=== PATIENT | male | born 1960 | race Caucasian/White ===

== ENCOUNTER → 2016-07-11 | Day surgery (SDC) | payer OTHER ==
[~2016-07-11] MED LIST: ACID REDUCER 1150 MG PO; ALPRAZOLAM0.5 MG PO; ASPIR 8181 MG PO; BETADINE OINT 101 GM TOP; CLINDAMYCIN HC300 MG PO; CORDARONE 200M200 MG PO; COUMADIN4 MG PO; COUMADIN5 MG PO; DOME-PASTE BANDA1 EA TOP; DOXYCYCLINE HY100 MG PO; GLUCOTROL10 MG PO; HYDRALAZINE HCL25 MG PO; IMDUR ER TAB 6060 MG PO; IPRAT-ALBUT 0.5-3 ML INH; JANUVIA100 MG PO; LEVAQUIN750 MG PO; LIPITOR TAB 2020 MG PO; LISINOPRIL5 MG PO; LOPRESSOR50 MG PO; NEURONTIN 400400 MG PO; NITROSTAT0.4 MG SL; NORCO 5-325 TA1 EACH PO; NORVASC 5 MG TAB5 MG PO; PEPCID20 MG PO; PERCOCET 10-321 EACH PO; PHENERGAN 12.12.5 M1 PO; PHENERGAN 25 MG25 M1 PO; PLAVIX 75 MG TA75 MG PO; PROTONIX 40 MG40 M1 PO; RANEXA500 MG PO; TOPROL XL25 MG PO; TYLENOL 325MG325 MG PO; ZOCOR20 MG PO; [UNRECOGNIZED DRUG - CODE] SQ
[2016-07-11 11:58] LABS: BUN/CREATININE RATIO 19 (0-10)
== END | disposition home or self-care (01) ==
LOC: OR 08:30
PROVIDERS: Anesthesiology; Surgery
PROC: B518YZA Fluoroscopy of Superior Vena Cava using Other Contrast, Guidance (ICD-10-PCS; 2016-07-11)
PROC: 3E04329 Introduction of Other Anti-infective into Central Vein, Percutaneous Approach (ICD-10-PCS; 2016-07-11)
PROC: 02HV33Z Insertion of Infusion Device into Superior Vena Cava, Percutaneous Approach (ICD-10-PCS; principal; 2016-07-11 10:45)
DX: I87.8 Other specified disorders of veins (principal); M86.9 Osteomyelitis, unspecified; I25.2 Old myocardial infarction; I25.10 Atherosclerotic heart disease of native coronary artery without angina pectoris; K21.9 Gastro-esophageal reflux disease without esophagitis; E11.22 Type 2 diabetes mellitus with diabetic chronic kidney disease; I13.0 Hypertensive heart and chronic kidney disease with heart failure and stage 1 through stage 4 chronic kidney disease, or unspecified chronic kidney disease; N18.2 Chronic kidney disease, stage 2 (mild); I50.9 Heart failure, unspecified; E11.69 Type 2 diabetes mellitus with other specified complication; G89.29 Other chronic pain; M19.90 Unspecified osteoarthritis, unspecified site; M54.9 Dorsalgia, unspecified; F41.9 Anxiety disorder, unspecified; Z82.49 Family history of ischemic heart disease and other diseases of the circulatory system; Z83.3 Family history of diabetes mellitus; Z82.5 Family history of asthma and other chronic lower respiratory diseases; Z88.0 Allergy status to penicillin; Z79.82 Long term (current) use of aspirin; Z79.891 Long term (current) use of opiate analgesic; Z79.899 Other long term (current) drug therapy; Z90.49 Acquired absence of other specified parts of digestive tract; Z90.89 Acquired absence of other organs; Z95.0 Presence of cardiac pacemaker; Z98.890 Other specified postprocedural states
CPT/HCPCS: 71010; 77001; 80048; 82962; 85610; 85730; C1751; C1769; J0690; J1644; J2250; J2270; J3010; J3370; J7030; J7070; J7120

== ENCOUNTER → 2016-07-12 | Outpatient (CLI) | payer OTHER ==
[~2016-07-12] VITALS: Ht 167.6 cm; Wt 97.5 kg
== END ==
LOC: OPSV 11:00
DX: M86.8X7 Other osteomyelitis, ankle and foot (principal); Z88.0 Allergy status to penicillin
CPT/HCPCS: 96365; 96366; J1956

== ENCOUNTER 2016-07-17 14:07 | Emergency (ER) | payer OTHER ==
[~2016-07-17 14:07] MED LIST changes: -BETADINE OINT 101 GM TOP; -DOME-PASTE BANDA1 EA TOP; -DOXYCYCLINE HY100 MG PO; -IPRAT-ALBUT 0.5-3 ML INH; -JANUVIA100 MG PO; -LIPITOR TAB 2020 MG PO; -LISINOPRIL5 MG PO; -LOPRESSOR50 MG PO; -PHENERGAN 12.12.5 M1 PO
== END 2016-07-17 15:20 | disposition home or self-care (01) ==
LOC: ER1 14:07
DX: Z53.21 Procedure and treatment not carried out due to patient leaving prior to being seen by health care provider (principal)

== ENCOUNTER 2016-07-20 13:34 | Inpatient (IN) | payer OTHER ==
[~2016-07-20] VITALS: Ht 167.6 cm; Wt 99.8 kg
[2016-07-20 18:40] LABS: HEMOGLOBIN 13.4 gm/dl (14.0-17.5); RED BLOOD COUNT 4.48 M/UL (4.20-5.50); WHITE BLOOD COUNT 7.8 K/UL (4.5-11.0)
[2016-07-20 18:56] LABS: BUN/CREATININE RATIO 23 (0-10)
[2016-07-22 06:25] LABS: HEMOGLOBIN 11.5 gm/dl (14.0-17.5); WHITE BLOOD COUNT 8.8 K/UL (4.5-11.0)
[2016-07-22 06:26] LABS: RED BLOOD COUNT 3.9 M/UL (4.20-5.50)
[2016-07-22 06:39] LABS: BUN/CREATININE RATIO 20 (0-10)
[2016-07-23 05:52] LABS: HEMOGLOBIN 11.3 gm/dl (14.0-17.5); RED BLOOD COUNT 3.8 M/UL (4.20-5.50); WHITE BLOOD COUNT 9.4 K/UL (4.5-11.0)
[2016-07-24 03:44] LABS: RED BLOOD COUNT 3.72 M/UL (4.20-5.50); WHITE BLOOD COUNT 10.4 K/UL (4.5-11.0)
[2016-07-25 05:22] LABS: HEMOGLOBIN 10.4 gm/dl (14.0-17.5); RED BLOOD COUNT 3.51 M/UL (4.20-5.50); WHITE BLOOD COUNT 8.1 K/UL (4.5-11.0)
[2016-07-26 05:26] LABS: HEMOGLOBIN 10.3 gm/dl (14.0-17.5); RED BLOOD COUNT 3.49 M/UL (4.20-5.50); WHITE BLOOD COUNT 7.4 K/UL (4.5-11.0)
[2016-07-27 07:53] LABS: BUN/CREATININE RATIO 27 (0-10)
[2016-07-27] MEDS ORDERED: BETADINE OINT 101 GM TOP (19:23)
[2016-07-27] MEDS ORDERED: PHENERGAN 12.12.5 M1 PO (19:24)
== END 2016-07-27 20:32 | disposition home health service (06) | DRG 463 ==
LOC: ER1 13:34 → M/S 22:30 → ZEROF 22:30 → M/S 07-21 00:25
PROVIDERS: Emergency Medicine; Internal Medicine; Internal Medicine Infectious Disease; Internal Medicine Nephrology; ADMIT Internal Medicine
PROC: 3E00X29 Introduction of Other Anti-infective into Skin and Mucous Membranes, External Approach (ICD-10-PCS; principal; 2016-07-26)
PROC: 0JBQ0ZZ Excision of Right Foot Subcutaneous Tissue and Fascia, Open Approach (ICD-10-PCS; principal; 2016-07-26)
PROC: 0QBN0ZZ Excision of Right Metatarsal, Open Approach (ICD-10-PCS; principal; 2016-07-26)
DX: M86.671 Other chronic osteomyelitis, right ankle and foot (principal); A48.0 Gas gangrene; L03.115 Cellulitis of right lower limb; N17.9 Acute kidney failure, unspecified; I50.22 Chronic systolic (congestive) heart failure; I13.0 Hypertensive heart and chronic kidney disease with heart failure and stage 1 through stage 4 chronic kidney disease, or unspecified chronic kidney disease; E11.621 Type 2 diabetes mellitus with foot ulcer; L97.511 Non-pressure chronic ulcer of other part of right foot limited to breakdown of skin; L97.521 Non-pressure chronic ulcer of other part of left foot limited to breakdown of skin; Z16.21 Resistance to vancomycin; M89.771 Major osseous defect, right ankle and foot; E11.649 Type 2 diabetes mellitus with hypoglycemia without coma; E11.42 Type 2 diabetes mellitus with diabetic polyneuropathy; M79.671 Pain in right foot; E11.22 Type 2 diabetes mellitus with diabetic chronic kidney disease; N18.3 Chronic kidney disease, stage 3 (moderate); I48.91 Unspecified atrial fibrillation; I25.5 Ischemic cardiomyopathy; I87.8 Other specified disorders of veins; I25.10 Atherosclerotic heart disease of native coronary artery without angina pectoris; E78.5 Hyperlipidemia, unspecified; I25.2 Old myocardial infarction; Z95.5 Presence of coronary angioplasty implant and graft; Z95.0 Presence of cardiac pacemaker; Z86.718 Personal history of other venous thrombosis and embolism; Z79.84 Long term (current) use of oral hypoglycemic drugs; Z79.82 Long term (current) use of aspirin; Z79.4 Long term (current) use of insulin; Z79.01 Long term (current) use of anticoagulants; Z79.899 Other long term (current) drug therapy
CPT/HCPCS: ECHO; 36415; 73630; 73700; 80048; 80053; 80202; 81001; 82436; 82570; 82962; 83735; 84133; 84156; 84300; 85025; 85027; 85610; 86140; 87040; 87070; 87077; 87186; 87205; 89050; 93306; 93926; 93971; 96365; 96366; 96375; 96376; 97110; 97116; 99284; C1713; J1200; J1335; J1580; J1650; J2020; J2250; J2270; J2405; J2550; J2795; J3010; J3370; J7030; J7050; J7070; J7120

== ENCOUNTER → 2016-08-09 | Outpatient (CLI) | payer OTHER ==
[~2016-08-09] VITALS: Ht 167.6 cm; Wt 97.5 kg
[~2016-08-09] MED LIST changes: +BETADINE OINT 101 GM TOP; +DOME-PASTE BANDA1 EA TOP; +DOXYCYCLINE HY100 MG PO; +IPRAT-ALBUT 0.5-3 ML INH; +JANUVIA100 MG PO; +LIPITOR TAB 2020 MG PO; +LISINOPRIL5 MG PO; +LOPRESSOR50 MG PO; +PHENERGAN 12.12.5 M1 PO
[2016-08-09 14:50] LABS: BUN/CREATININE RATIO 16 (0-10)
== END ==
LOC: OPSV 13:33
PROVIDERS: Podiatrist Foot & Ankle Surgery
DX: M86.9 Osteomyelitis, unspecified (principal); Z88.0 Allergy status to penicillin
CPT/HCPCS: 36415; 80048; 86140; 96365; 96366; J3370; J7070

== ENCOUNTER → 2016-08-24 | Outpatient (CLI) | payer OTHER ==
[~2016-08-24] VITALS: Ht 167.6 cm; Wt 97.5 kg
== END ==
LOC: OPSV 13:31
PROVIDERS: Podiatrist Foot & Ankle Surgery
DX: M86.8X7 Other osteomyelitis, ankle and foot (principal)
CPT/HCPCS: 36415; 80048; 82550; 96365; J0878; J7050

== ENCOUNTER → 2016-09-13 | Outpatient (CLI) | payer OTHER | LOC: NM 09-12 07:40 | DX: M86.171 Other acute osteomyelitis, right ankle and foot (principal) | CPT/HCPCS: 78805; A9569 ==

== ENCOUNTER 2016-09-15 10:51 | Inpatient (IN) | payer OTHER ==
[~2016-09-15] VITALS: Ht 167.6 cm; Wt 99.6 kg
[~2016-09-15 10:51] MED LIST changes: -DOME-PASTE BANDA1 EA TOP; -DOXYCYCLINE HY100 MG PO; -IPRAT-ALBUT 0.5-3 ML INH; -JANUVIA100 MG PO; -LIPITOR TAB 2020 MG PO; -LISINOPRIL5 MG PO; -LOPRESSOR50 MG PO
[2016-09-15 11:50] LABS: HEMOGLOBIN 10.1 gm/dl (14.0-17.5); RED BLOOD COUNT 3.68 M/UL (4.20-5.50); WHITE BLOOD COUNT 8.9 K/UL (4.5-11.0)
[2016-09-15 12:20] LABS: BUN/CREATININE RATIO 16 (0-10)
[2016-09-15] MEDS ORDERED: IPRAT-ALBUT 0.5-3 ML INH (18:16)
[2016-09-15 21:58] LABS: HEMOGLOBIN 10.9 gm/dl (14.0-17.5); RED BLOOD COUNT 3.95 M/UL (4.20-5.50); WHITE BLOOD COUNT 13.5 K/UL (4.5-11.0)
[2016-09-16 04:43] LABS: ACINETOBACTER BAUMANNII Not Detected (Negative); CANDIDA ALBICANS Not Detected (Negative); CANDIDA KRUSEI Not Detected (Negative); ENTEROCOCCUS Not Detected (Negative); ESCHERICHIA COLI Not Detected (Negative); HAEMOPHILUS INFLUENZAE Not Detected (Negative); KLEBSIELLA OXYTOCA Not Detected (Negative); KLEBSIELLA PNEUMONIAE Not Detected (Negative); KPC-CARBAPENEM-RESISTANCE GENE Not Detected (Negative); PROTEUS Not Detected (Negative); PSEUDOMONAS AERUGINOSA Not Detected (Negative); SERRATIA MARCESANS Not Detected (Negative); STAPHYLOCOCCUS Not Detected (Negative); STAPHYLOCOCCUS AUREUS Not Detected (Negative); STREP AGALACTIAE (GROUP B) Not Detected (Negative); STREP PYOGENES (GROUP A) Not Detected (Negative); STREPTOCOCCUS Not Detected (Negative); mecA (METHICILLIN RESIST GENE Not Detected (Negative); vanA/B (VANCOMYCIN RESIST GENE Not Detected (Negative)
[2016-09-16 04:57] LABS: HEMOGLOBIN 11.6 gm/dl (14.0-17.5); RED BLOOD COUNT 4.24 M/UL (4.20-5.50); WHITE BLOOD COUNT 16.2 K/UL (4.5-11.0)
[2016-09-16 05:16] LABS: BUN/CREATININE RATIO 15 (0-10)
[2016-09-16 07:20] LABS: CANDIDA TROPICALIS DETECTED (Negative)
[2016-09-17 06:58] LABS: HEMOGLOBIN 9.2 gm/dl (14.0-17.5); RED BLOOD COUNT 3.37 M/UL (4.20-5.50); WHITE BLOOD COUNT 9.8 K/UL (4.5-11.0)
[2016-09-18 04:22] LABS: HEMOGLOBIN 9.3 gm/dl (14.0-17.5); RED BLOOD COUNT 3.42 M/UL (4.20-5.50); WHITE BLOOD COUNT 8.1 K/UL (4.5-11.0)
[2016-09-18 04:49] LABS: BUN/CREATININE RATIO 19 (0-10)
[2016-09-19 04:06] LABS: RED BLOOD COUNT 3.31 M/UL (4.20-5.50); WHITE BLOOD COUNT 6.6 K/UL (4.5-11.0)
[2016-09-19 04:36] LABS: BUN/CREATININE RATIO 20 (0-10)
[2016-09-20 04:24] LABS: HEMOGLOBIN 9.3 gm/dl (14.0-17.5); RED BLOOD COUNT 3.49 M/UL (4.20-5.50); WHITE BLOOD COUNT 5.6 K/UL (4.5-11.0)
[2016-09-20 05:02] LABS: BUN/CREATININE RATIO 21 (0-10)
[2016-09-21 07:18] LABS: HEMOGLOBIN 9.7 gm/dl (14.0-17.5); RED BLOOD COUNT 3.58 M/UL (4.20-5.50)
[2016-09-21 07:32] LABS: BUN/CREATININE RATIO 14 (0-10)
[2016-09-23 06:35] LABS: HEMOGLOBIN 8.9 gm/dl (14.0-17.5); RED BLOOD COUNT 3.29 M/UL (4.20-5.50); WHITE BLOOD COUNT 9.6 K/UL (4.5-11.0)
[2016-09-23 07:05] LABS: BUN/CREATININE RATIO 19 (0-10)
[2016-09-25 04:26] LABS: HEMOGLOBIN 8.9 gm/dl (14.0-17.5); RED BLOOD COUNT 3.28 M/UL (4.20-5.50); WHITE BLOOD COUNT 8.3 K/UL (4.5-11.0)
[2016-09-26 06:19] LABS: RED BLOOD COUNT 3.39 M/UL (4.20-5.50); WHITE BLOOD COUNT 9.4 K/UL (4.5-11.0)
[2016-09-26 06:59] LABS: BUN/CREATININE RATIO 19 (0-10)
[2016-09-27 05:29] LABS: HEMOGLOBIN 9.5 gm/dl (14.0-17.5); RED BLOOD COUNT 3.57 M/UL (4.20-5.50); WHITE BLOOD COUNT 9.1 K/UL (4.5-11.0)
[2016-09-27 05:57] LABS: BUN/CREATININE RATIO 16 (0-10)
[2016-09-28 04:10] LABS: HEMOGLOBIN 9.3 gm/dl (14.0-17.5); RED BLOOD COUNT 3.42 M/UL (4.20-5.50); WHITE BLOOD COUNT 7.9 K/UL (4.5-11.0)
[2016-09-29 05:09] LABS: HEMOGLOBIN 9.3 gm/dl (14.0-17.5); RED BLOOD COUNT 3.53 M/UL (4.20-5.50); WHITE BLOOD COUNT 9.7 K/UL (4.5-11.0)
[2016-09-29 05:27] LABS: BUN/CREATININE RATIO 16 (0-10)
[2016-09-29] MEDS ORDERED: DOXYCYCLINE HY100 MG PO (15:07)
[2016-09-29] MEDS ORDERED: LOPRESSOR50 MG PO (15:08)
[2016-09-29] MEDS ORDERED: LISINOPRIL5 MG PO (15:08)
[2016-09-29] MEDS ORDERED: DOME-PASTE BANDA1 EA TOP (15:10)
[2016-09-29] MEDS ORDERED: LIPITOR TAB 2020 MG PO (15:11)
[2016-09-29] MEDS ORDERED: JANUVIA100 MG PO (15:12)
== END 2016-09-29 17:56 | disposition home health service (06) | DRG 314 ==
LOC: ER1 10:51 → ZEROF 14:04 → MED SURG 4 14:04 → PROG CARE 14:04 → MED SURG 4 17:02 → PROG CARE 09-16 16:28 → MED SURG 4 09-19 21:34
PROVIDERS: Emergency Medicine; Internal Medicine; ADMIT Internal Medicine Infectious Disease
PROC: 05HN33Z Insertion of Infusion Device into Left Internal Jugular Vein, Percutaneous Approach (ICD-10-PCS; principal; 2016-09-16)
PROC: B544ZZA Ultrasonography of Left Jugular Veins, Guidance (ICD-10-PCS; 2016-09-16)
PROC: 05PY33Z Removal of Infusion Device from Upper Vein, Percutaneous Approach (ICD-10-PCS; 2016-09-16)
PROC: 5A2204Z Restoration of Cardiac Rhythm, Single (ICD-10-PCS; 2016-09-18)
PROC: B246ZZ4 Ultrasonography of Right and Left Heart, Transesophageal (ICD-10-PCS; 2016-09-18)
DX: T80.211A Bloodstream infection due to central venous catheter, initial encounter (principal); B37.7 Candidal sepsis; I50.23 Acute on chronic systolic (congestive) heart failure; M86.671 Other chronic osteomyelitis, right ankle and foot; D68.4 Acquired coagulation factor deficiency; Y81.1 Therapeutic (nonsurgical) and rehabilitative general- and plastic-surgery devices associated with adverse incidents; I48.0 Paroxysmal atrial fibrillation; E11.69 Type 2 diabetes mellitus with other specified complication; E87.6 Hypokalemia; I11.0 Hypertensive heart disease with heart failure; I25.5 Ischemic cardiomyopathy; T45.515A Adverse effect of anticoagulants, initial encounter; I25.10 Atherosclerotic heart disease of native coronary artery without angina pectoris; E78.5 Hyperlipidemia, unspecified; I27.2 Other secondary pulmonary hypertension; E11.621 Type 2 diabetes mellitus with foot ulcer; L97.519 Non-pressure chronic ulcer of other part of right foot with unspecified severity; B95.62 Methicillin resistant Staphylococcus aureus infection as the cause of diseases classified elsewhere; I08.1 Rheumatic disorders of both mitral and tricuspid valves; R11.2 Nausea with vomiting, unspecified; G89.29 Other chronic pain; M54.9 Dorsalgia, unspecified; I87.8 Other specified disorders of veins; E66.9 Obesity, unspecified; Z68.34 Body mass index [BMI] 34.0-34.9, adult; Z95.810 Presence of automatic (implantable) cardiac defibrillator; Z95.5 Presence of coronary angioplasty implant and graft; Z86.718 Personal history of other venous thrombosis and embolism; Z79.01 Long term (current) use of anticoagulants; Z79.84 Long term (current) use of oral hypoglycemic drugs; Z79.82 Long term (current) use of aspirin; Z79.4 Long term (current) use of insulin; Z79.891 Long term (current) use of opiate analgesic; Z79.899 Other long term (current) drug therapy; Z88.0 Allergy status to penicillin; Z91.041 Radiographic dye allergy status; Z90.49 Acquired absence of other specified parts of digestive tract; Z98.890 Other specified postprocedural states; Z80.8 Family history of malignant neoplasm of other organs or systems; Z82.49 Family history of ischemic heart disease and other diseases of the circulatory system
CPT/HCPCS: ECHO; 36415; 36600; 71010; 71020; 73630; 80048; 80053; 80076; 81001; 82550; 82553; 82607; 82728; 82803; 82962; 83540; 83550; 83605; 83690; 83735; 83874; 83880; 84439; 84443; 84466; 84484; 85025; 85027; 85045; 85610; 86140; 87040; 87070; 87150; 87278; 92610; 93005; 93306; 93312; 93320; 94640; 94664; 94760; 96361; 96374; 96375; 96376; 97110; 97116; 97530; 97535; 99285; C1751; J1160; J1335; J1650; J1815; J1940; J2248; J2250; J2270; J2405; J2550; J3010; J7030; J7040; J7050